=== PATIENT | male | born 1990 | race Caucasian/White ===

== ENCOUNTER → 2017-06-02 | Outpatient (CLI) | payer MEDICAID | LOC: M WUC 11:55 | DX: S40.011A Contusion of right shoulder, initial encounter (principal) | CPT/HCPCS: 73000 ==

== ENCOUNTER → 2018-04-29 | Outpatient (CLI) | payer OTHER ==
--- NOTE | 2018-04-29 14:36 | REP ---
LEFT SHOULDER THREE VIEWS: HISTORY: Shoulder pain. There is no acute fracture or dislocation. The joint spaces are normal in appearance. IMPRESSION: There is no acute fracture or dislocation. Electronically Signed by Vinay Nayak MD 04/29/2018 02:36 P
--- NOTE | 2018-04-29 14:38 | REP ---
LEFT CLAVICLE, TWO VIEWS: HISTORY: Pain. There is no acute fracture or dislocation. The joint spaces are normal in appearance. IMPRESSION: There is no acute fracture or dislocation. Electronically Signed by Vinay Nayak MD 04/29/2018 02:38 P
--- NOTE | 2018-05-02 16:23 | REP ---
CERVICAL SPINE, SEVEN VIEWS: HISTORY: Neck pain. There is no acute fracture or subluxation. The intervertebral discs are decreased normal in height. The facet joints are normal in appearance. There is loss of the normal lordotic curve. IMPRESSION:There is no acute fracture or subluxation. Electronically Signed by Vinay Nayak MD 05/02/2018 04:36 P
== END ==
LOC: M WUC 13:52
PROVIDERS: ATTEND Physician Assistant
DX: M25.512 Pain in left shoulder (principal); M54.2 Cervicalgia